=== PATIENT | female | born 1965 ===

== ENCOUNTER 2024-11-02 12:32 | Emergency (ER) | payer OTHER, SELFPAY ==
--- NOTE | ~2024-11-02 | XR_ITS ---
EXAMINATION: XR ANKLE 3 OR MORE VIEWS RIGHT, XR FOOT 3 OR MORE VIEWS RIGHT HISTORY: pain, injury COMPARISON: There are no prior studies available for comparison. FINDINGS: Six views of the right foot and ankle are submitted. The bones are osteopenic. There is no acute fracture or dislocation. Postsurgical changes are noted involving the head of the metatarsal of the great toe and the 1st proximal phalanx. The joint spaces are preserved. There is marked soft tissue swelling over the lateral malleolus. XR/XR foot RT min 3V IMPRESSION: Marked soft tissue swelling over the lateral malleolus. No evidence of fracture of the right foot or ankle. Electronically signed by: Laurent Hartman MD 11/02/2024 01:13 PM EDT
--- NOTE | ~2024-11-02 | XR_ITS ---
EXAMINATION: XR ANKLE 3 OR MORE VIEWS RIGHT, XR FOOT 3 OR MORE VIEWS RIGHT HISTORY: pain, injury COMPARISON: There are no prior studies available for comparison. FINDINGS: Six views of the right foot and ankle are submitted. The bones are osteopenic. There is no acute fracture or dislocation. Postsurgical changes are noted involving the head of the metatarsal of the great toe and the 1st proximal phalanx. The joint spaces are preserved. There is marked soft tissue swelling over the lateral malleolus. XR/XR ankle RT min 3V IMPRESSION: Marked soft tissue swelling over the lateral malleolus. No evidence of fracture of the right foot or ankle. Electronically signed by: Laurent Hartman MD 11/02/2024 01:13 PM EDT
--- NOTE | 2024-11-02 12:41 | ED_ITS ---
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 Patient states that she was walking down the stairs when she rolled her right ankle on the last stair. Patient denies any dizziness, lightheadedness, abdominal pain, nausea, vomiting, fever, chills, blurry vision, double vision, loss of vision, chest pain, difficulty breathing, shortness of breath, back pain, night sweats, pain with urination, increased urinary frequency, increased urinary urgency, blood in her urine or stool, syncope or a near syncopal episode, bowel incontinence, bladder incontinence, or any other complaints at this time. Relieving factors: immobilization Exacerbating factors: movement Associated symptoms: denies other symptoms Treatments prior to arrival: none Related Data Allergies Allergy/AdvReac Type Severity Reaction Status Date / Time levofloxacin [From Levaquin] Allergy Itching Verified 11/02/24 12:49 Review of Systems Constitutional: Constitutional: Reports no additional constitutional complaints, Denies chills, Denies fever(s) and Denies night sweats Eyes: Eyes: Reports no additional eye complaints, Denies blurry vision, Denies change in vision, Denies diplopia, Denies eye discharge, Denies loss of vision and Denies eye pain ENT: Denies dizziness Cardiovascular: Cardiovascular: Reports no additional cardiovascular complaints, Denies chest pain, Denies lightheadedness, Denies Loss of Consci ousness and Denies dyspnea Respiratory: Respiratory: Reports no additional respiratory complaints and Denies dyspnea Gastrointestinal: Gastrointestinal: Reports no additional gastrointestinal complaints, Denies abdominal pain, Denies melena, Denies hematochezia, Denies change in bowel habits and Denies change in stool character Genitourinary: Genitourinary: Denies hematuria, Denies urinary frequency, Denies dysuria, Denies urinary incontinence, Denies urinary hesitancy and Denies urinary urgency Musculoskeletal: Musculoskeletal: Reports no additional musculoskeletal complaints, Denies numbness and Denies tingling Comments: right ankle pain Neurologic: Denies dizziness, Denies loss of vision, Denies numbness and Denies tingling Psychiatric: Psychiatric: Reports no additional psychiatric complaints Endocrine: Endocrine: Reports no additional endocrine complaints Hematologic/Lymphatic: Hematologic/Lymphatic: Reports no additional hematologic/lymphatic complaints Allergic/Immunologic: Allergic/Immunologic: Reports no additional allergic/immunologic complaints [facility] Past Medical History Attestation statement: The following information was validated with the patient. Source: old records reviewed and nursing notes reviewed Social History Social History Advance Directives: No Advance Directives Information Provided: Yes Physical Exam ED Vital Signs: Vital Signs - 24 hr 11/02/24 12:46 11/02/24 14:43 Temperature 98.6 F 98.6 F Pulse Rate 66 66 Respiratory Rate 18 18 Blood Pressure 125/74 125/74 Pulse Oximetry 100 100 Oxygen Delivery Method Room Air Room Air BMI result Body Mass Index 35.3 Const General: cooperative, no acute distress, alert and awake Nutritional Appearance: well nourished Orientation/consciousness: patient oriented x3 HENMT Head: Yes normal to inspection and Yes atraumatic Ears: hearing grossly normal bilaterally and external ears normal General nose exam: Normal external nose present, no nasal discharge noted and no epistaxis Face and sinus: Yes normal facial exam, No abrasion and No laceration Mouth: Normal oral and palatal mucosa present, no drooling and no muffled voice Eyes General: appearance normal, both eyes and all related structures Periorbital: periorbital findings normal Eyelids: Yes eyelids normal Conjunctivae: conjunctivae normal Pupils: Equal, round and reactive pupils present EOM: EOMs intact bilaterally Neck Neck: Yes normal visual inspection, Yes full ROM and Yes no lymphadenopathy Resp Effort & Inspection: normal respiratory effort and able to speak in complete sentences Neuro General: patient oriented x3, moves all extremities and CN's II-XI intact bilaterally Cranial nerves: Yes Equal, round and reactive pupils present Cognition (Neuro): normal cognition Extrem Other: lateral swelling of the right ankle pain with palpation of the right ankle present and intact pulses of the right lower extremity General: Yes full ROM and Yes capillary refill normal Psych Appearance: grossly normal Mental Status: mental status grossly normal Affect: normal affect Attitude: cooperative Thought process: Normal thought process present Thought content: Normal thought content present Insight: Good insight present (Psych) Procedures Orthopedic Splinting/Casting Injury #1: Side: right Lower Extremity Injury Location: ankle Lower Extremity Immobilizer: boot orthosis Other Orthopedic Equipment: crutches Medical Decision Making Medical Decision Making MDM Narrative: Patient is a 59 year old assigned female at with no reported medical history presenting to the emergency department today with right ankle pain. Patient's physical exam was as noted in the physical exam portion of this note. Patient's right foot and ankle x-ray showed no acute nic process. I explained my physical exam findings as well as all test results to the patient. I answered all questions asked by the patient. Given the patient's significant swelling and pain - patient's right ankle placed in a high ankle boot and given crutches with crutch instructions. Patient's PMS was intact prior to and after boot placement. Patient was able to use crutches while in the department. I stressed the importance of the patient taking her medication as directed (either prescribed or as the over the counter packaging recommends). I stressed the importance of the patient following up with her primary care provider and the orthopedic team. I stressed the importance of the patient returning to the emergency department immediately if her symptoms were to worsen or if she were to develop any dizziness, shortness of breath, difficulty breathing, chest pain, blurry vision, loss of vision, nausea, vomiting, abdominal pain, fever, chills, back pain, or any other complaints. Patient verbalized agreement and understanding with this treatment plan and discharge. Differential Diagnosis Differential Diagnoses: The differential diagnosis associated with the presentation includes Right ankle sprain Right ankle strain Right ankle fx Admission/Observation Consideration of admission/observation: Escalation of care including admission/observation considered Patient would have been admitted to the hospital had her work up had any findings where hospital admission was appropriate and her clinical presentation warranted hospital admission. Independent Interpretation I performed an independent interpretation of an: Plain X-Ray (right foot and ankle) Interpretation: My interpretation is in agreement with the radiologist's impression of these im aging studies. EXAMINATION: XR ANKLE 3 OR MORE VIEWS RIGHT, XR FOOT 3 OR MORE VIEWS RIGHT HISTORY: pain, injury COMPARISON: There are no prior studies available for comparison. FINDINGS: Six views of the right foot and ankle are submitted. The bones are osteopenic. There is no acute fracture or dislocation. Postsurgical changes are noted involving the head of the metatarsal of the great toe and the 1st proximal phalanx. The joint spaces are preserved. There is marked soft tissue swelling over the lateral malleolus. XR/XR foot RT min 3V IMPRESSION: Marked soft tissue swelling over the lateral malleolus. No evidence of fracture of the right foot or ankle. Electronically signed by: Laurent Hartman MD 11/02/2024 01:13 PM EDT Dictated By: Laurent Hartman MD Signed By: Electronically signed by Laurent Hartman MD 11/02/24 1313 EXAMINATION: XR ANKLE 3 OR MORE VIEWS RIGHT, XR FOOT 3 OR MORE VIEWS RIGHT HISTORY: pain, injury COMPARISON: There are no prior studies available for comparison. FINDINGS: Six views of the right foot and ankle are submitted. The bones are osteopenic. There is no acute fracture or dislocation. Postsurgical changes are noted involving the head of the metatarsal of the great toe and the 1st proximal phalanx. The joint spaces are preserved. There is marked soft tissue swelling over the lateral malleolus. XR/XR ankle RT min 3V IMPRESSION: Marked soft tissue swelling over the lateral malleolus. No evidence of fracture of the right foot or ankle. Electronically signed by: Laurent Hartman MD 11/02/2024 01:13 PM EDT Dictated By: Laurent Hartman MD Signed By: Electronically signed by Laurent Hartman MD 11/02/24 1313 Radiology Impression Discussion of test interpretation with radiology: I have reviewed the radiologist's reading. Discharge Plan Discharge Clinical Impression: Ankle sprain and strain Patient Disposition: Home, Self-Care Instructions: Ankle Sprain (ED), Crutch Instructions (ED), Walking Boot (ED) Additional Instructions: Follow up with your primary care provider and the orthopedic team. Return to the emergency department immediately if your symptoms worsen or if you develop any dizziness, shortness of breath, difficulty breathing, chest pain, blurry vision, loss of vision, nausea, vomiting, abdominal pain, fever, chills, back pain, or any other complaints. Chapito un seguimiento con villasenor m?dico de cabecera y el equipo ortop?dico. Vuelva inmediatamente al servicio de urgencias si simón s?ntomas empeoran o si presenta mareos, falta de aliento, dificultad para respirar, dolor tor?cico, visi?n borrosa, p?rdida de visi?n, n?useas, v?mitos, dolor abdominal, fiebre, escalofr?os, dolor de espalda o cualquier otra molestia. Please see the information below about our Patient Portal. If you are not yet enrolled in the [facility] Patient Portal, you will receive an enrollment email invitation following your visit to any [facility] setting. You may also self-enroll in the Patient Portal by visiting our website: [email or web address] The following information is required to access the Patient Portal: - Your [facility] Medical Record Number - Your personal home email address (must match what is in your electronic medical record, Registration staff can assist with this) - Name - Date of Capabilities of the Patient Portal: - Message some providers - View upcoming appointments - Access your health summary, medical history, and visit history - View current conditions and allergies - View procedure and lab results - View your medications, including guidelines, side effects, and precautions - Complete pre-appointment questionnaires requested by your provider - Ready summary reports of your office visits and procedures To access the Patient Portal Mobile Josefina, follow these directions: - Search Open Utility in the [employer] Store or [employer] Store - Download the Josefina - Search for [facility] - Enter your login/password Portal del paciente Si usted no esta inscrito en el portal de pacientes de [facility], recibira aminta invitacion de inscripcion despues de villasenor visita al [facility] o al [facility] via correo electronico. Tambien puede inscribirse voluntariamente en el portal de pacientes visitando nuestra pagina web: [email or web address] La siguiente informacion sera requerida para acceder al portal: - Villasenor rogelio de historia medica de [facility] - Villasenor direccion de correo electronico personal - Nombre - Fecha de nacimiento Capacidades: Las siguientes capacidades estan disponibles en el portal de pacientes: - Enviar mensajes a algunos doctores - Verificar proximas citas - Acceso a villasenor historial de jovani, registro medico e historial de visitas - Preeti las condiciones actuales y alergias preeti procedimientos y resultados del laboratorio - Preeti simón medicamentos, incluyendo las pautas - Efectos secundarios y precauciones - Completar o llenar formularios / cuestionarios de - Citas solicitadas por villasenor doctor - Leer los resumenes de reportes medicos de simón visitas y procedimientos Brittani acceder a la aplicacion movil: - Busque [employer] en la Josefina Store o [employer] Store - Descargue la aplicacion - Busque [facility] - Ingrese villasenor nombre de usuario / Contrasena Referrals: [facility] Orthopedic Surgeons [Provider Group] (Call to establish and follow up with an orthopedic provider. Llame para establecer y seguir con un proveedor de ortopedia.) Karen Salomon MD [Primary Care Provider] - Interventions: ED Discharge Assessment Last Done: 11/02/24 14:43 Discharge Date/Time: 11/02/24 14:43 Print Language: Bulgarian
[2024-11-02 12:42] VITALS: BP 144/92; PULSE 70; O2SAT 99
[2024-11-02 12:46] VITALS: BP 125/74; PULSE 66; RESP 18; TEMP 37; O2SAT 100; BMI 35.3
--- OUTSIDE RECORDS SUMMARY | 2024-11-02 13:38 | XMS_ITS | Patient Health Record ---
Author Organization [employer] [facility] Address [address] [place] [address] Support Name Relationship Address Phone CLARKVINICIUS TANNER Guarantor Unknown Allergies Allergen (clinical drug ingredient) Drug/Non Drug Allergy documented on EMR Reaction Allergy Type Onset Date Status Levaquin rash Drug Allergy Active Reason For Referral No Information Medications Medication SIG (Take, Route, Frequency, Duration) Notes Start Date End Date Status Meloxicam 15 MG 1 tablet Orally Once a day Active Omeprazole 40 MG 1 capsule 30 minutes before morning meal Orally Once a day Active Albuterol Sulfate HFA 108 (90 Base) MCG/ACT 1 puff as needed Inhalation every 4 hrs Active Rizatriptan Benzoate 10 MG 1 tablet Oral ly Once a day as needed Active Topiramate 50 MG 1 tablet Orally Twic e a day Active Phentermine HCl 15 MG 1 capsule Orally O nce a day for 28 days 12/28/2020 Active Amitriptyline HCl 50 MG 1 tablet at bedt kg Orally Once a day Active Baclofen 10 MG 1 tablet as needed Orally Twice a day Active Vitamin D3 1.25 MG (21304 UT) 1 capsule Orally once a week Active Social History Tobacco Use: Social History Observation Description Date Details (start date - stop date) Never Smoker NA - NA Tobacco Use/Smoking Question Answer Notes Are you a nonsmoker Alcohol Screen (Audit-C) Question Answer Notes Did you have a drink containing alcohol in the p ast year? No Points 0 Interpretation Negative Problems Problem Type SNOMED Code ICD Code Onset Dates Problem Status W/U Status Risk Notes Problem Morbid (severe) obesity due to excess calories (E66.01) Active confirmed Problem Chronic intractable migraine without aura (770088124452986 ) Chronic migraine without aura, intractable, without status migrainosus (G43.719) Active confirmed Problem Gastro-esophagea l reflux disease without esophagitis (352853530) Gastro-esophage al reflux disease without esophagitis (K21.9) Active confirmed Plan Of Treatment No Information Insurance Providers Payer Name Payer Address Payer Phone Subscriber Number Group Number Insured Name Patient Relationship to Insured Coverage Start Date Coverage End Date [facility] [address] [place] [phone] [id number] VINICIUS CLARK Self - patient is the insured Medical (General) History Medical History History ICD Code GERD chronic migraine headaches seasonal allergies vitamin D deficiency chronic back pain Surgical History Surgery Date(Month/Year) hysterectomy
[2024-11-02 14:43] VITALS: BP 125/74; PULSE 66; RESP 18; TEMP 37; O2SAT 100
== END 2024-11-02 14:43 | disposition home or self-care (01) ==
PROVIDERS: Emergency Provider Emergency Medicine; PCP Internal Medicine
DX: S93.401A Sprain of unspecified ligament of right ankle, initial encounter (principal); M25.571 Pain in right ankle and joints of right foot; X58.XXXA Exposure to other specified factors, initial encounter; Y93.9 Activity, unspecified; Y92.9 Unspecified place or not applicable; Y99.8 Other external cause status
CPT/HCPCS: 73610; 73630; 99283

== ENCOUNTER → 2024-11-02 12:41 | Outpatient (BNV) | payer OTHER, SELFPAY | PROVIDERS: Emergency Provider Emergency Medicine; PCP Internal Medicine; Visit Provider Radiology Diagnostic Radiology | DX: M25.571 Pain in right ankle and joints of right foot (principal); M79.671 Pain in right foot | CPT/HCPCS: 73610; 73630 ==

== ENCOUNTER 2024-11-17 13:57 | Outpatient (AMB) | payer OTHER, SELFPAY ==
--- NOTE | 2024-11-17 14:19 | MHC.OFFVIS ---
Vital Signs 11/17/24 14:25 Height 5 ft 3 in Weight 196 lb BMI 34.7 Intake Visit Reasons: ER - right ankle sprain/strain Intake Note: Patti is a 59 year old female who presents today for a evolution of of her right ankle sprain and strain DOI 11/02/24. Patient states that she was walking down the stairs when she rolled her right ankle on the last stair. She mentions she had a lot of swelling and she is having mild pain. Patient mentions when she has sudden movements she feels a sharp pain on the lateral aspect of the ankle. Denies numbness and tingling. IMPRESSION: Marked soft tissue swelling over the lateral malleolus. No evidence of fracture of the right foot or ankle. Allergies levofloxacin [From Levaquin] Allergy (Verified 11/17/24 14:22) Itching HPI HPI ER - right ankle sprain/strain: Details: Ms. Shelley Arriaga is a 59 year old female who presents today for a evolution of of her right ankle sprain and strain DOI 11/02/24. Patient states that she was walking down the stairs when she rolled her right ankle on the last stair. She mentions she had a lot of swelling and she is having mild pain. Patient mentions when she has sudden movements she feels a sharp pain on the lateral aspect of the ankle. She reports that she has a history of disc herniation in her lower back and her bilateral feet occasionally go numb. In this situation the right foot was having some numbness and caused an inversion injury due to decreased sensation. IMPRESSION: Marked soft tissue swelling over the lateral malleolus. No evidence of fracture of the right foot or ankle. [facility] Social History (Updated 11/17/24 @ 14:23 by Aury Nichols) Alcohol intake: never Patient Tobacco Use Status: Never used Tobacco Current occupational status: retired Review of Systems Const All systems reviewed & are unremarkable except as noted in HPI and below Physical Exam Vital Signs: BMI result Body Mass Index 34.7 Const General: cooperative, healthy appearing and no acute distress Resp Effort & Inspection: normal respiratory effort and able to speak in complete sentences Extrem Other: Right ankle moderate lateral malleolar edema with mild medial malleolar edema. Able to perform dorsiflexion and plantar flexion pronation supination but is limited due to pain and swelling. Tenderness to palpation along the peroneal tendon. Her sensation is reportedly intact at this time. Pedal pulse intact. Assessment & Plan Assessment & Plan (1) Right ankle sprain: Code(s): S93.401A - Sprain of unspecified ligament of right ankle, initial encounter Category: Medical Plan Ms. Shelley Arriaga is a 59 year old female who presents today for a evolution of of her right ankle sprain and strain DOI 11/02/24. Patient states that she was walking down the stairs when she rolled her right ankle on the last stair. She mentions she had a lot of swelling and she is having mild pain. Patient mentions when she has sudden movements she feels a sharp pain on the lateral aspect of the ankle. She reports that she has a history of disc herniation in her lower back and her bilateral feet occasionally go numb. In this situation the right foot was having some numbness and caused an inversion injury due to decreased sensation. While in the office today I recommended that the patient continue wearing the boot for the next 2 weeks. I have also placed an order for physical therapy to assist the patient in weaning out of the boot and work on range of motion and then progress to strengthening as tolerated. The patient will follow up in 4 weeks, sooner if needed X-rays of the right ankle were obtained on 11/02/2024 were reviewed by me, Roxanne Mike PA-C, revealed no acute fracture or dislocation. Moderate lateral malleolar edema. Coding Level of Care Code New Pt Level 3 (94435) Diagnoses Right ankle sprain S93.401A
[2024-11-17 14:25] VITALS: BMI 34.7
== END 2024-11-17 14:40 | disposition home or self-care (01) ==
LOC: HO.HOS 13:57
PROVIDERS: PCP Internal Medicine; Visit Provider Physician Assistant
DX: S93.401A Sprain of unspecified ligament of right ankle, initial encounter (principal)
CPT/HCPCS: 99203

== ENCOUNTER → 2024-11-17 13:57 | Outpatient (BNVA) | payer OTHER, SELFPAY | PROVIDERS: PCP Internal Medicine; Visit Provider Physician Assistant | DX: S93.401A Sprain of unspecified ligament of right ankle, initial encounter (principal) | CPT/HCPCS: 99202 ==